=== PATIENT | male | born 1975 | race Caucasian/White ===

== ENCOUNTER 2019-08-21 11:36 | Emergency (ER) | payer SELFPAY ==
[~2019-08-21] VITALS: Ht 172.7 cm; Wt 90.0 kg
[~2019-08-21 11:36] MED LIST: MECL-77 PO; ONDA4TAB14 PO
[2019-08-21 11:47] VITALS: Ht 172.7 cm; Wt 90.0 kg
[2019-08-21] MEDS ORDERED: ONDANSETRON 4 MG INJ IV STA (12:21)
[2019-08-21] MEDS ORDERED: SOD CHLORIDE 0.9% 1,000 ML IV STA (12:21)
[2019-08-21] MEDS ORDERED: MECLIZINE 12.5 MG TAB PO ONE (12:30)
[2019-08-21 14:19] VITALS: BP 169/96; PULSE 75; RESP 18
== END 2019-08-21 14:21 | disposition home or self-care (01) ==
LOC: FTE 11:36
DX: R10.9 Unspecified abdominal pain (principal); R42 Dizziness and giddiness; R11.2 Nausea with vomiting, unspecified; E11.9 Type 2 diabetes mellitus without complications; Z87.891 Personal history of nicotine dependence
CPT/HCPCS: 36415; 80053; 81001; 83690; 85025; 96361; 96374; 99284; J2405; J7030